=== PATIENT | male | born 1985 | race Caucasian/White ===

== ENCOUNTER → 2019-03-11 | Outpatient (CLI) | payer BC ==
[2019-03-11 10:36] LABS: BASOPHILS % (AUTO) 1 % (0-10); EOSINOPHILS # (AUTO) 0.3 10^3/uL (0.0-0.3); EOSINOPHILS % (AUTO) 4 % (0-10); HEMATOCRIT 48 % (40-54); HEMOGLOBIN 16.4 G/DL (13.3-17.7); LYMPHOCYTES # (AUTO) 2.6 X 10^3 (1.0-4.0); LYMPHOCYTES % (AUTO) 40 % (12-44); MEAN CORPUSCULAR HEMOGLOBIN 29 PG (25-34); MEAN CORPUSCULAR HGB CONC 34 G/DL (32-36); MEAN CORPUSCULAR VOLUME 84 FL (80-99); MEAN PLATELET VOLUME 11.9 FL (7.4-10.4); MONOCYTES # (AUTO) 0.5 X 10^3 (0.0-1.0); MONOCYTES % (AUTO) 8 % (0-12); NEUTROPHILS # (AUTO) 3.1 X 10^3 (1.8-7.8); NEUTROPHILS % (AUTO) 47 % (42-75); PLATELET COUNT 176 10^3/uL (130-400); WHITE BLOOD COUNT 6.5 10^3/uL (4.3-11.0)
[2019-03-11 10:55] LABS: ALANINE AMINOTRANSFERASE 41 U/L (0-55); ALBUMIN 4.5 GM/DL (3.2-4.5); ALKALINE PHOSPHATASE 83 U/L (40-136); BILIRUBIN,TOTAL 0.4 MG/DL (0.1-1.0); BUN/CREATININE RATIO 15; CALCIUM 9.4 MG/DL (8.5-10.1); CARBON DIOXIDE 23 MMOL/L (21-32); CHLORIDE 105 MMOL/L (98-107); CREATININE SERUM 0.89 MG/DL (0.60-1.30); GFR ESTIMATED > 60; GLUCOSE 87 MG/DL (70-105); MAGNESIUM 2.5 MG/DL (1.8-2.4); POTASSIUM 4.2 MMOL/L (3.6-5.0); SODIUM 139 MMOL/L (135-145); TOTAL PROTEIN 7.2 GM/DL (6.4-8.2)
--- NOTE | 2019-03-11 10:59 | Diagnostic Imaging Report ---
INDICATION: Left sided chest pain. Frontal chest obtained at 1021 hrs am. Heart and mediastinal silhouette are normal in appearance. The lungs are clear. There is no pneumothorax or pleural fluid. IMPRESSION: Negative chest. Dictated by: Dictated on workstation # [id number]
== END ==
LOC: LAB 09:49
PROVIDERS: ATTEND Physician Assistant
DX: E78.5 Hyperlipidemia, unspecified (principal); R94.31 Abnormal electrocardiogram [ECG] [EKG]; R07.89 Other chest pain
CPT/HCPCS: 36415; 71045; 80053; 83735; 84484; 85025; 93005

== ENCOUNTER → 2019-03-15 | Outpatient (CLI) | payer BC ==
[~2019-03-15] MED LIST: HOLD METFORMIN - RECEIVED CONTRAST 20 ML VIAL IV SCH; IOHEXOL 350 MG/ML 100 ML (OMNIPAQUE 350) VIAL IV ONE; NS 100 ML (IVPB) BAG IV ONE
--- NOTE | 2019-03-15 10:29 | Diagnostic Imaging Report ---
PROCEDURE: CT chest with contrast only. TECHNIQUE: Multiple contiguous axial images were obtained through the chest after administration of intravenous contrast. Auto Exposure Controls were utilized during the CT exam to meet ALARA standards for radiation dose reduction. INDICATION: Chest pain. COMPARISON: No comparison is available. FINDINGS: The lungs are clear. No edema or pneumonia. No pleural effusion or pneumothorax. No suspicious nodules. The heart size is normal. No pericardial effusion. The aorta is normal in caliber. No axillary, supraclavicular, or mediastinal lymphadenopathy. A normal-appearing thymus is seen in the anterior mediastinum. Limited views of the upper abdomen are normal. There are no suspicious osseous lesions. IMPRESSION: No acute abnormality in the chest. Dictated by: Dictated on workstation # [id number]
== END ==
LOC: RAD 08:38
PROVIDERS: ATTEND Physician Assistant
DX: R07.89 Other chest pain (principal); Z86.79 Personal history of other diseases of the circulatory system
CPT/HCPCS: 71260; 93306

== ENCOUNTER 2020-09-24 00:41 | Emergency (ER) | payer OTHER, BC ==
[~2020-09-24] VITALS: Ht 172.7 cm; Wt 92.9 kg
[2020-09-24 01:14] LABS: BASOPHILS # (AUTO) 0.1 10^3/uL (0.0-0.1); BASOPHILS % (AUTO) 1 % (0-10); EOSINOPHILS # (AUTO) 0.6 10^3/uL (0.0-0.3); EOSINOPHILS % (AUTO) 7 % (0-10); HEMATOCRIT 48 % (40-54); HEMOGLOBIN 16.1 g/dL (13.3-17.7); LYMPHOCYTES # (AUTO) 4.1 10^3/uL (1.0-4.0); LYMPHOCYTES % (AUTO) 45 % (12-44); MEAN CORPUSCULAR HEMOGLOBIN 29 pg (25-34); MEAN CORPUSCULAR HGB CONC 34 g/dL (32-36); MEAN CORPUSCULAR VOLUME 87 fL (80-99); MEAN PLATELET VOLUME 11.9 fL (9.0-12.2); MONOCYTES # (AUTO) 0.6 10^3/uL (0.0-1.0); MONOCYTES % (AUTO) 6 % (0-12); NEUTROPHILS # (AUTO) 3.8 10^3/uL (1.8-7.8); NEUTROPHILS % (AUTO) 42 % (42-75); PLATELET COUNT 218 10^3/uL (130-400); WHITE BLOOD COUNT 9.2 10^3/uL (4.3-11.0)
[2020-09-24 01:24] LABS: ALBUMIN 4.4 GM/DL (3.2-4.5); CHLORIDE 104 MMOL/L (98-107); POTASSIUM 3.9 MMOL/L (3.6-5.0); SODIUM 140 MMOL/L (135-145)
[2020-09-24 01:25] LABS: CALCIUM 9.4 MG/DL (8.5-10.1); INR 0.8 (0.8-1.4); PROTHROMBIN TIME PATIENT 11.7 SEC (12.2-14.7)
[2020-09-24 01:26] LABS: GLUCOSE 125 MG/DL (70-105); TOTAL PROTEIN 7.5 GM/DL (6.4-8.2)
[2020-09-24 01:27] LABS: CARBON DIOXIDE 25 MMOL/L (21-32)
[2020-09-24 01:28] LABS: BILIRUBIN,TOTAL 0.3 MG/DL (0.1-1.0)
[2020-09-24 01:29] LABS: ALKALINE PHOSPHATASE 89 U/L (40-136)
[2020-09-24 01:30] LABS: CREATININE SERUM 0.99 MG/DL (0.60-1.30); GFR ESTIMATED > 60
[2020-09-24 01:31] LABS: BUN/CREATININE RATIO 9
[2020-09-24 01:33] LABS: ALANINE AMINOTRANSFERASE 46 U/L (0-55)
--- NOTE | 2020-09-24 01:33 | ED Fall/Injury ---
General Chief Complaint: Trauma-Non Activation Stated Complaint: FALL - BACK PAIN Source: patient History of Present Illness Date Seen by Provider: Sep 24, 2020 Time Seen by Provider: 00:57 Initial Comments PT IS EMS FOR [facility], AND JUST PRIOR TO ARRIVAL, WAS ON A CALL AND SLIPPED ON ICY PAVEMENT AND FELL BACK, HITTING HIS RIGHT MID BACK ON METAL STEP OF THE AMBULANCE DID NOT HIT HEAD AND NO LOSS OF CONSCIOUSNESS NO NECK PAIN NO EXTREMITY PAIN NO PARESTHESIAS OR MOTOR DEFICITS C/O PAIN TO RIGHT MID AND LOWER BACK HAS SOME PAIN WITH BREATHING BUT DOES NOT FEEL SHORT OF BREATH NO ANTERIOR CHEST OR ABDOMINAL PAIN NO NAUSEA OR VOMITING HAS HAD PRIOR LUMBAR DISC SURGERY PCP: DR. SCHMITZ/BABITA BUNN Allergies and Home Medications Allergies Coded Allergies: No Known Drug Allergies (Unverified , 03/15/19) Home Medications Cyclobenzaprine HCl 10 Mg Tablet, 10 MG PO Q8H PRN for SPASMS Prescribed by: JOHAN DOTSON on 09/24/207 Patient Home Medication List Home Medication List Reviewed: Yes Review of Systems Review of Systems Constitutional: no symptoms reported Eyes: No Symptoms Reported Ears, Nose, Mouth, Throat: no symptoms reported Respiratory: see HPI Cardiovascular: no symptoms reported Gastrointestinal: no symptoms reported Genitourinary: no symptoms reported Musculoskeletal: see HPI, back pain Skin: other (ABRASION/HEMATOMA TO RIGHT MID AND LOWER BACK) Psychiatric/Neurological: No Symptoms Reported; Denies Headache, Denies Numbness, Denies Paresthesia, Denies Tingling, Denies Tremors, Denies Weakness Past Tysftxh-Agvhnt-Bniiev Hx Past Med/Social Hx: Reviewed and Corrections made Patient Social History Alcohol Use: Rarely Uses Smoking Status: Never a Smoker Immunizations Up To Date PED Vaccines UTD: Yes Past Medical History Surgeries: Yes (LUMBAR DISC SURGERY) Orthopedic Respiratory: No Cardiac: No Neurological: No Genitourinary: No Gastrointestinal: No Musculoskeletal: No Endocrine: No HEENT: No (GLASSES) Cancer: No Psychosocial: No Integumentary: No Blood Disorders: No Physical Exam Vital Signs Vital Signs - First Documented 09/24/20 00:50 Temp 37.0 Pulse 87 Resp 20 B/P (MAP) 128/95 (106) Pulse Ox 96 Capillary Refill : Height, Weight, BMI Height: '" Weight: lbs. oz. kg; BMI Method: General Appearance: WD/WN, no apparent distress HEENT: PERRL/EOMI Neck: non-tender, full range of motion, supple, normal inspection Cardiovascular: regular rate, rhythm, no murmur Respiratory: chest non-tender, normal breath sounds, no respiratory distress, no accessory muscle use Gastrointestinal: non tender, soft Back: other (TENDERNESS TO RIGHT MID AND LOWER BACK, WITH HEMATOMA AND ABRASION TO THIS AREA. NO CREPITANCE OR SUB Q AIR. ) Extremities: normal range of motion, non-tender, normal inspection, normal capillary refill Neurologic/Psychiatric: capsule maker II-XII nml as tested, no motor/sensory deficits, alert, normal mood/affect, oriented x 3 Skin: normal color, warm/dry, other (ABRASION AND HEMATOMA NOTED ABOVE) Silas Coma Score Best Eye Response: (4) Open Spontaneously Best Verbal Response: (5) Oriented Best Motor Response: (6) Obeys Commands Silas Total: 15 Progress/Results/Core Measures Results/Orders Lab Results Laboratory Tests Test 09/24/20 01:00 09/24/20 01:30 Range/Units White Blood Count 9.2 4.3-11.0 10^3/uL Red Blood Count 5.55 H 4.30-5.52 10^6/uL Hemoglobin 16.1 13.3-17.7 g/dL Hematocrit 48 40-54 % Mean Corpuscular Volume 87 80-99 fL Mean Corpuscular Hemoglobin 29 25-34 pg Mean Corpuscular Hemoglobin Concent 34 32-36 g/dL Red Cell Distribution Width 12.7 10.0-14.5 % Platelet Count 218 130-400 10^3/uL Mean Platelet Volume 11.9 9.0-12.2 fL Immature Granulocyte % (Auto) 0 % Neutrophils (%) (Auto) 42 42-75 % Lymphocytes (%) (Auto) 45 H 12-44 % Monocytes (%) (Auto) 6 0-12 % Eosinophils (%) (Auto) 7 0-10 % Basophils (%) (Auto) 1 0-10 % Neutrophils # (Auto) 3.8 1.8-7.8 10^3/uL Lymphocytes # (Auto) 4.1 H 1.0-4.0 10^3/uL Monocytes # (Auto) 0.6 0.0-1.0 10^3/uL Eosinophils # (Auto) 0.6 H 0.0-0.3 10^3/uL Basophils # (Auto) 0.1 0.0-0.1 10^3/uL Immature Granulocyte # (Auto) 0.0 0.0-0.1 10^3/uL Prothrombin Time 11.7 L 12.2-14.7 SEC INR Comment 0.8 0.8-1.4 Activated Partial Thromboplast Time 29 24-35 SEC Sodium Level 140 135-145 MMOL/L Potassium Level 3.9 3.6-5.0 MMOL/L Chloride Level 104 98-107 MMOL/L Carbon Dioxide Level 25 21-32 MMOL/L Anion Gap 11 5-14 MMOL/L Blood Urea Nitrogen 9 7-18 MG/DL Creatinine 0.99 0.60-1.30 MG/DL Estimat Glomerular Filtration Rate > 60 BUN/Creatinine Ratio 9 Glucose Level 125 H 70-105 MG/DL Calcium Level 9.4 8.5-10.1 MG/DL Corrected Calcium 9.1 8.5-10.1 MG/DL Total Bilirubin 0.3 0.1-1.0 MG/DL Aspartate Amino Transf (AST/SGOT) 22 5-34 U/L Alanine Aminotransferase (ALT/SGPT) 46 0-55 U/L Alkaline Phosphatase 89 40-136 U/L Total Protein 7.5 6.4-8.2 GM/DL Albumin 4.4 3.2-4.5 GM/DL Urine Color YELLOW Urine Clarity CLEAR Urine pH 6.0 5-9 Urine Specific [place] >=1.030 1.016-1.022 Urine Protein NEGATIVE NEGATIVE Urine Glucose (UA) NEGATIVE NEGATIVE Urine Ketones TRACE H NEGATIVE Urine Nitrite NEGATIVE NEGATIVE Urine Bilirubin NEGATIVE NEGATIVE Urine Urobilinogen 0.2 < = 1.0 MG/DL Urine Leukocyte Esterase NEGATIVE NEGATIVE Urine RBC (Auto) NEGATIVE NEGATIVE Urine RBC NONE /HPF Urine WBC NONE /HPF Urine Squamous Epithelial Cells RARE /HPF Urine Crystals NONE /LPF Urine Bacteria NEGATIVE /HPF Urine Casts NONE /LPF Urine Mucus NEGATIVE /LPF Urine Culture Indicated NO My Orders Orders - JOHAN DOTSON DO Ed Iv/Invasive Line Start (09/24/20 01:04) Monitor-Rhythm Ecg Trace Only (09/24/20 01:04) Ct Thoracic/Lumbar Spine Wo (09/24/20 01:04) Chest 1 View, Ap/Pa Only (09/24/20 01:04) Cbc With Automated Diff (09/24/20 01:04) Comprehensive Metabolic Panel (09/24/20 01:04) Protime With Inr (09/24/20 01:04) Partial Thromboplastin Time (09/24/20 01:04) Ua Culture If Indicated (09/24/20 01:04) Ct Chest/Abdomen/Pelvis W (09/24/20 01:04) Rx-Cyclobenzaprine Tablet (Rx-Flexeril T (09/24/20 03:13) Iohexol Injection (Omnipaque 350 Mg/Ml 1 (09/24/20 04:15) Received Contrast (Hold Metformin- Contr (09/24/20 04:15) Ns (Ivpb) (Sodium Chloride 0.9% Ivpb Bag (09/24/20 04:15) Vital Signs/I&O 09/24/20 09/24/20 00:50 03:28 Temp 37.0 Pulse 87 88 Resp 20 20 B/P (MAP) 128/95 (106) 133/83 Pulse Ox 96 96 Diagnostic Imaging Comments CXR--NO ACUTE PROCESS, PENDING RADIOLOGIST REVIEW CT THORACIC/LUMBAR SPINE--NO ACUTE TRAUMATIC INJURY. LEFT 12TH RIB WITH NON- SPECIFIC LYTIC LESION 1.5 CM--STATISTICALLY FAVORED TO BE A BENIGN LESION--PER [facility] VIA FAX AT [address] CT CHEST/ABDOMEN/PELVIS--NO ACUTE TRAUMATIC INJURY OR ACUTE PROCESS--PER [facility] VIA FAX AT [id number] Reviewed: Reviewed by Me Departure Impression Primary Impression: Contusion of right side of mid back Additional Impression: ABNORMALITY LEFT 12TH RIB Disposition: HOME, SELF-CARE Condition: Stable Departure-Patient Inst. Referrals: MILAGROS SCHMITZ MD (PCP/Family) Primary Care Physician Patient Instructions: Contusion (DC) Add. Discharge Instructions: ICE TO SORE AREA AT 20 MINUTE INTERVALS FOR FIRST 1-2 DAYS, THEN ALTERNATE ICE AND HEAT AT 20 MINUTE INTERVALS NEEDED FOR PAIN TAKE YOUR HOME PERCOCET NEEDED FOR PAIN FOLLOW UP WITH [facility] TOMORROW MORNING FOR FURTHER CARE All discharge instructions reviewed with patient and/or family. Voiced understanding. Scripts Cyclobenzaprine HCl (Cyclobenzaprine HCl) 10 Mg Tablet 10 MG PO Q8H PRN for SPASMS, #15 TAB 0 Refills Prov: JOHAN DOTSON DO 09/24/20 Work/School Note: Work Release Form Date Seen in the Emergency Department: Sep 24, 2020 Restrictions: Follow Up With [facility] JOHAN DOTSON DO Sep 24, 2020 01:33
[2020-09-24 01:38] LABS: BILIRUBIN,URINE NEGATIVE (NEGATIVE); CLARITY,URINE CLEAR; COLOR,URINE YELLOW; GLUCOSE, URINE (UA) NEGATIVE (NEGATIVE); KETONES,URINE TRACE (NEGATIVE); LEUKOCYTE ESTERASE ,URINE NEGATIVE (NEGATIVE); NITRITE,URINE NEGATIVE (NEGATIVE); PROTEIN,URINE NEGATIVE (NEGATIVE)
[2020-09-24 02:02] LABS: BACTERIA,URINE NEGATIVE /HPF; SQUAMOUS EPITHELIAL CELL,UR RARE /HPF
[2020-09-24] MEDS ORDERED: RX-CYCLOBENZAPRINE 10 MG (FLEXERIL) TAB PPK#3 PO STA (03:13)
[2020-09-24] MEDS ORDERED: CYCL10TA9 PO (03:17)
[2020-09-24 03:28] VITALS: BP 133/83
[2020-09-24] MEDS ORDERED: HOLD METFORMIN - RECEIVED CONTRAST 20 ML VIAL IV SCH (04:15)
[2020-09-24] MEDS ORDERED: IOHEXOL 350 MG/ML 100 ML (OMNIPAQUE 350) VIAL IV ONE (04:15)
[2020-09-24] MEDS ORDERED: NS 100 ML (IVPB) BAG IV ONE (04:15)
--- NOTE | 2020-09-24 05:42 | Diagnostic Imaging Report ---
INDICATION: TRAUMA COMPARISON: 03/11/2019 FINDINGS: Single frontal view of the chest demonstrates normal heart size and pulmonary vascularity. The lungs show low inspiratory volumes, but are otherwise clear. No large pleural effusion or pneumothorax is seen. The visualized osseous structures show no acute abnormalities. IMPRESSION: 1. No acute cardiopulmonary process. Dictated by: Dictated on workstation # [id number]
--- NOTE | 2020-09-24 07:09 | Diagnostic Imaging Report ---
Procedure: CT chest, abdomen, and pelvis with contrast. Technique: Multiple contiguous axial images were obtained through the chest, abdomen, and pelvis after the administration of intravenous contrast. Auto Exposure Controls were utilized during the CT exam to meet ALARA standards for radiation dose reduction. Date: September 24, 2020. Indication: 34-year-old male, fall. Chest and abdominal pain. Back pain. Contusion of the right lower back. Comparison: CT chest March 15, 2019. Findings: There is mild dependent atelectasis in the right and left lower lobes. There are linear opacities in the lingula most consistent with atelectasis or mild scarring. There is no pulmonary nodule. There is no lung mass. There is no additional focal airspace consolidation. There is no pneumothorax. There is no pleural effusion. The central airways are patent. The study is limited for evaluation of pulmonary embolus given the timing of the contrast bolus. There is no identified central pulmonary embolus. The heart is not enlarged. There is no identified pericardial effusion. There is no identified abnormally enlarged mediastinal, hilar, or axillary lymph node which meets CT size criteria for adenopathy. The liver is unremarkable in size and contour. There is no identified liver lesion. The main, right, left portal veins are patent. The gallbladder is contracted. There is no biliary ductal dilation. The main pancreatic duct is not abnormally dilated. The pancreatic parenchyma is unremarkable. The spleen is normal in size. There is a small accessory splenule on axial image 45. The adrenal glands are unremarkable. Unremarkable appearance of the renal parenchyma. The urinary collecting systems are not distended. There is no identified renal or ureteral stone. Urinary bladder is underdistended and otherwise unremarkable in appearance. Intestinal tract is not distended. There is no evidence of acute appendicitis. The appendix is best seen on axial image 68 and adjacent sequential images. There is no free intraperitoneal air. There is no drainable fluid collection. There is no free pelvic fluid. There is a circumaortic left renal vein. There is no abnormally enlarged lymph node in the abdomen or pelvis meeting CT size criteria for adenopathy. There is no identified acute fracture. There is disc degenerative change at L4-L5 and L5-S1 with severe disc height loss at both levels. Impression: 1. No identified acute abnormality at the level of the chest, abdomen, or pelvis. Dictated by: Dictated on workstation # [id number]
--- NOTE | 2020-09-24 07:11 | Diagnostic Imaging Report ---
Procedure: CT thoracic and lumbar spine without contrast. Technique: Multiple contiguous axial images were obtained through the thoracic and lumbar spine without the use of intravenous contrast. Sagittal and coronal reformations were then performed. All CT scans use one or more of the following dose optimizing techniques: automated exposure control, MA and/or KvP adjustment based on a patient size and exam type, or iterative reconstruction. Date: September 24, 2020. Indication: 34-year-old male, fall. Mid and lower back pain. Comparison: Same day CT chest, abdomen and pelvis September 24, 2020. Findings: There is no identified acute fracture at the level of the thoracic or lumbar spine. There is severe disc height loss at L4-L5 and L5-S1. There is a suspected broad-based predominantly left-sided disc extrusion at L4-L5 with suspected severe narrowing of the left lateral recess and mild to moderate left foraminal stenosis. There is also suspected mild to moderate spinal stenosis at this level. There is transitional lumbosacral anatomy. L5 is labeled as partially sacralized. If spinal intervention is to be performed in the future, recommend careful correlation with levels. There is a lytic lesion of left 12th rib with loss of cortex measuring 11 mm in size on axial image 19. This lesion is present dating back to March 15, 2019. Impression: 1. No identified acute fracture of the thoracic or lumbar spine. 2. Sizable broad-based left-sided disc extrusion at L4-L5 with suspected severe narrowing of the left lateral recess, mild to moderate left foraminal narrowing, and mild to moderate spinal stenosis. 3. Transitional lumbosacral anatomy. L5 is labeled as partially sacralized. If spinal intervention is to be performed in the future, recommend careful correlation with levels. 4. 11 mm lytic lesion of the left 12th rib present dating back to at least March 15, 2019. Recommend comparison with earlier prior imaging if available to assess for greater than two-year stability. Given stability since February 2019, this is most likely benign although continued followup is recommended as this lesion is indeterminate. Dictated by: Dictated on workstation # [id number]
== END 2020-09-24 03:28 | disposition home or self-care (01) ==
LOC: EDUNIT# 00:41 → ER 00:43
DX: S30.0XXA Contusion of lower back and pelvis, initial encounter (principal); M95.4 Acquired deformity of chest and rib; W01.198A Fall on same level from slipping, tripping and stumbling with subsequent striking against other object, initial encounter
CPT/HCPCS: 36415; 71045; 71260; 72128; 72131; 74177; 80053; 81000; 85025; 85610; 85730; 93041